=== PATIENT | male | born 1985 | race Caucasian/White ===

== ENCOUNTER 2020-03-09 08:04 | Outpatient (REF) | payer OTHER, SELFPAY ==
--- NOTE | 2020-03-09 08:11 | EMG_ITS ---
Bilateral median and ulnar motor and sensory studies were performed. Bilateral radial sensory studies were performed and paraspinal muscles were tested. IMPRESSION: Mild bilateral median neuropathy across carpal tunnel affecting sensory and motor components. MD JH Galeas/CHIKIS / [id number]
[2020-03-09 09:50] LABS: MANUAL DIFF FLAG NO
[2020-03-09 10:15] LABS: Basophils Percent Auto 0.4 % (0-2); Eosinophils Absolute Auto 0.1 X10*3/uL (0.0-0.4); Eosinophils Percent Auto 1.4 % (0-4); Hematocrit 48.4 % (42-52); Hemoglobin 16.1 g/dl (14.0-18.0); Imm Gran Abs Auto 0.01 X10*3/uL (0.00-0.03); Imm Gran Pct Auto 0.2 % (0.0-0.4); Lymphocytes Absolute Auto 1.6 X10*3/uL (1.2-4.9); Lymphocytes Percent Auto 30.5 % (20-40); Mean Corpuscular HGB Conc 33.3 g/dl (31.0-36.0); Mean Corpuscular Hemoglobin 28.8 pg (27.0-33.0); Mean Corpuscular Volume 86.6 fL (80-98); Monocytes Absolute Auto 0.5 X10*3/uL (0.1-1.2); Monocytes Percent Auto 10.4 % (2-11); Neutrophils Absolute Auto 2.9 X10*3/uL (2.0-8.3); Neutrophils Percent Auto 57.1 % (45-73); Platelet Count 320 X10*3/uL (160-400); Red Blood Count 5.59 X10*6/uL (4.60-5.80); Red Cell Distribution Width 13.3 % (11.0-16.0); White Blood Count 5.1 X10*3/uL (4.8-10.8)
[2020-03-09 10:41] LABS: Alanine Aminotransferase 44 U/L (0-40); Albumin Level 4.6 g/dL (3.5-5.0); Alkaline Phosphatase 68 U/L (39-117); Anion Gap 13 (12-20); Aspartate Amino Transferase 39 U/L (5-37); Bilirubin Total 0.7 mg/dL (0.0-1.0); Blood Urea Nitrogen 15 mg/dL (9-16); Carbon Dioxide 27 mmol/L (22-29); Chloride 105 mmol/L (96-108); Cholesterol 213 mg/dL; Estimated Glomerular Filt Rate > 60; Glucose Random 79 mg/dL (60-115); HDL Cholesterol 30 mg/dL; LDL Cholesterol Calculated 166 mg/dl; Potassium 4.6 mmol/l (3.3-5.1); Sodium 140 mmol/L (135-145); Total Protein 7.5 g/dL (6.5-8.0); Triglycerides 87 mg/dL
== END 2020-03-09 08:05 | disposition home or self-care (01) ==
LOC: HO.NEURO 08:04
PROVIDERS: PCP Internal Medicine; Visit Provider Internal Medicine
DX: R20.0 Anesthesia of skin (principal); E78.00 Pure hypercholesterolemia, unspecified
CPT/HCPCS: 36415; 80053; 80061; 85025; 95860; 95886; 95911

== ENCOUNTER 2020-03-29 10:11 | Outpatient (REF) | payer OTHER, SELFPAY ==
[2020-03-29 10:44] LABS: COVID-19 Test Negative (Negative)
== END 2020-03-29 10:12 | disposition home or self-care (01) ==
LOC: HO.LAB 10:11
PROVIDERS: PCP Internal Medicine; Visit Provider Internal Medicine
DX: Z20.828 Contact with and (suspected) exposure to other viral communicable diseases (principal)
CPT/HCPCS: 87635; C9803

== ENCOUNTER 2020-04-20 11:46 | Outpatient (REF) | payer OTHER, SELFPAY ==
[2020-04-20 15:50] LABS: COVID-19 Test Negative (Negative)
== END 2020-04-20 11:47 | disposition home or self-care (01) ==
LOC: HO.LAB 11:46
PROVIDERS: Visit Provider Internal Medicine
DX: Z20.828 Contact with and (suspected) exposure to other viral communicable diseases (principal)
CPT/HCPCS: 87635; C9803; U0003

== ENCOUNTER 2020-11-03 14:37 | Outpatient (REF) | payer OTHER, SELFPAY ==
--- NOTE | ~2020-11-03 | US_ITS ---
EXAMINATION: TARGETED LEFT BREAST ULTRASOUND CLINICAL INFORMATION: Left breast lump COMPARISON: Mammography of same day TECHNIQUE: Targeted ultrasound evaluation to retroareolar region left breast FINDINGS: Ultrasound evaluation did not demonstrate any suspicious mass, edematous change, or suspicious sound shadowing. There is small amount of retroareolar parenchyma present consistent with gynecomastia. US/US breast LT complete IMPRESSION: Left gynecomastia. No suspicious left breast ultrasound findings. BI-RADS 2, benign
--- NOTE | ~2020-11-03 | MM_ITS ---
EXAMINATION: MM DIAGNOSTIC DIGITAL BREAST TOMOSYNTHESIS, BILATERAL Targeted left breast ultrasound CLINICAL INFORMATION: Left breast lump COMPARISON: Mammography: None TECHNIQUE: Digital breast tomosynthesis is performed in both the craniocaudal and mediolateral oblique views along with computer-aided detection (CAD). Synthesized 2D images are generated from the tomosynthesis. Targeted left breast ultrasound. FINDINGS: The breasts are almost entirely fatty (ACR BI-RADS breast composition Category a). There are no suspicious significant masses, abnormal calcifications, or other abnormalities. There is a small amount of asymmetric breast parenchyma retroareolar region of the left breast. Targeted left breast ultrasound demonstrates the retroareolar region a small amount of breast tissue consistent with gynecomastia. No suspicious cystic or solid mass identified. Results are discussed with the patient at time of visit. MM/MM tomosynthesis diagnostic BI IMPRESSION: No specific mammographic or ultrasound findings to suggest malignancy. Asymmetric gynecomastia. ASSESSMENT: BI-RADS 2: Benign RECOMMENDATION: Clinical follow-up
== END 2020-11-03 14:38 | disposition home or self-care (01) ==
LOC: HO.MAMMO 14:37
PROVIDERS: Visit Provider Internal Medicine
DX: N63.20 Unspecified lump in the left breast, unspecified quadrant (principal)
CPT/HCPCS: 76641; 77062; 77066

== ENCOUNTER 2021-06-13 08:28 | Outpatient (REF) | payer OTHER, SELFPAY ==
--- NOTE | ~2021-06-13 | FL_ITS ---
EXAMINATION: FL AIR-CONTRAST UPPER GI EXAMINATION AND ESOPHAGRAM CLINICAL INFORMATION: Dysphagia. COMPARISON: None. TECHNIQUE: Air-contrast upper GI examination. FINDINGS: There is normal apposition of the vocal cords while saying E . There is normal elevation of the soft palate while saying candy . Patient swallowed thin and thick barium without difficulty. No nasopharyngeal reflux or tracheal aspiration was present. No cricopharyngeal hypertrophy or Zenker's diverticulum is seen. Patient swallowed a half-inch diameter barium tablet without difficulty. There is normal distensibility of the esophagus without evidence of persistent stricture or mucosal abnormality. No hiatal hernia. No gastroesophageal reflux was elicited during the study including with water siphon test. The stomach demonstrates normal distensibility without abnormal mass or ulceration. There was no delay in gastric emptying. The duodenal bulb and sweep appeared unremarkable. FL/FL upper GI w air w Ba Swallow IMPRESSION: Normal esophagram and upper GI examination.
== END 2021-06-13 08:29 | disposition home or self-care (01) ==
LOC: HO.XRAY 08:28
PROVIDERS: PCP Internal Medicine; Visit Provider Internal Medicine
DX: R13.10 Dysphagia, unspecified (principal)
CPT/HCPCS: 74246

== ENCOUNTER 2021-07-19 08:52 | Outpatient (REF) | payer OTHER, SELFPAY ==
[2021-07-19 09:07] LABS: MANUAL DIFF FLAG NO
[2021-07-19 10:03] LABS: Basophils Percent Auto 0.4 % (0-2); Eosinophils Absolute Auto 0.2 X10*3/uL (0.0-0.4); Eosinophils Percent Auto 5.1 % (0-4); Hemoglobin 16.2 g/dl (14.0-18.0); Imm Gran Abs Auto 0.03 X10*3/uL (0.00-0.03); Imm Gran Pct Auto 0.6 % (0.0-0.4); Lymphocytes Absolute Auto 1.3 X10*3/uL (1.2-4.9); Lymphocytes Percent Auto 27.7 % (20-40); Mean Corpuscular HGB Conc 33.8 g/dl (31.0-36.0); Mean Corpuscular Volume 88.9 fL (80.0-98.0); Mean Platelet Volume 10.8 fL (9.4-12.4); Monocytes Absolute Auto 0.6 X10*3/uL (0.1-1.2); Monocytes Percent Auto 13.5 % (2-11); Neutrophils Absolute Auto 2.5 x10*3/uL (2.0-8.3); Neutrophils Percent Auto 52.7 % (45-73); Platelet Count 313 X10*3/uL (160-400); Red Cell Distribution Width 13.1 % (11.0-16.0); White Blood Count 4.7 X10*3/uL (4.8-10.8)
[2021-07-19 10:54] LABS: Alanine Aminotransferase 55 U/L (0-40); Albumin Level 4.6 g/dL (3.5-5.0); Alkaline Phosphatase 62 U/L (39-117); Anion Gap 14 (12-20); Aspartate Amino Transferase 27 U/L (5-37); Bilirubin Total 0.5 mg/dL (0.0-1.0); Blood Urea Nitrogen 14 mg/dL (9-16); Calcium 10.1 mg/dL (8.4-10.2); Carbon Dioxide 25 mmol/L (22-29); Chloride 105 mmol/L (96-108); Cholesterol 229 mg/dL; Estimated Glomerular Filt Rate > 60; Glucose Fasting 95 mg/dL (60-99); HDL Cholesterol 31 mg/dL; LDL Cholesterol Calculated 162 mg/dl; Potassium 4.5 mmol/L (3.3-5.1); Sodium 139 mmol/L (135-145); Total Protein 7.8 g/dL (6.5-8.0); Triglycerides 183 mg/dL
[2021-07-19 11:01] LABS: TSH reflex Free T4 1.32 uIU/mL (0.32-4.0)
[2021-07-19 11:11] LABS: Folate 10.3 ng/mL (> or = 4.0); Vitamin B12 429 pg/mL (200-900)
[2021-07-24 15:22] LABS: Vitamin D 25-OH, D2 <4 ng/mL; Vitamin D 25-OH, D3 12 ng/mL; Vitamin D 25-OH, Total 12 ng/mL (30-100)
== END 2021-07-19 08:53 | disposition home or self-care (01) ==
LOC: HO.LAB 08:52
PROVIDERS: Nurse Practitioner Acute Care; PCP Internal Medicine; Visit Provider Internal Medicine
DX: E78.00 Pure hypercholesterolemia, unspecified (principal); F41.0 Panic disorder [episodic paroxysmal anxiety]
CPT/HCPCS: 36415; 80053; 80061; 82306; 82607; 82746; 84443; 85025

== ENCOUNTER 2021-11-29 09:28 | Outpatient (REF) | payer OTHER, SELFPAY ==
[2021-11-29 10:56] LABS: HBS Num1 686.06 mIU/mL (0-7.99); HBc Num1 0.11 S/CO (0.00-0.79); HBsAGNum1 0.19 S/CO (0.00-0.99); HIV AB/AG Nonreactive (Nonreactive); HIV Num 1 0.07 S/CO (0.00-0.99); Hepatitis B Core Antibody Nonreactive (Nonreactive); Hepatitis B Surface Antigen Negative (Negative); ~HepC Num1 0.06 S/CO (0.00-0.79); ~Hepatitis B Surface Antibody REACTIVE (Nonreactive); ~Hepatitis C Antibody Nonreactive (Nonreactive)
[2021-12-05 20:03] LABS: Treponema pallidum Ab FTA ABS Nonreactive (Nonreactive)
== END 2021-11-29 09:29 | disposition home or self-care (01) ==
LOC: HO.LAB 09:28
PROVIDERS: PCP Internal Medicine; Visit Provider Internal Medicine
DX: Z11.4 Encounter for screening for human immunodeficiency virus [HIV] (principal); R79.89 Other specified abnormal findings of blood chemistry; Z20.2 Contact with and (suspected) exposure to infections with a predominantly sexual mode of transmission
CPT/HCPCS: 36415; 86704; 86706; 86780; 86803; 87340; 87389

== ENCOUNTER 2023-01-28 13:25 | Outpatient (AMB) | payer OTHER, SELFPAY ==
[2023-01-28 13:29] VITALS: BP 130/80; PULSE 79; O2SAT 100; BMI 31.5
--- NOTE | 2023-01-28 13:29 | MHC.PC.OV ---
Vital Signs 01/28/23 13:29 Height 5 ft 11 in Weight 226 lb BMI 31.5 BP 130/80 Blood Pressure Location Lt brachial Position Sitting Pulse 79 Pulse Source Pulse Oximeter Temp Source Skin Pulse Oximetry (%) 100 Oxygen Delivery Method Room Air Intake Visit Reasons: skin tags, spot on face Community Organization Worker Required: No Allergies No Known Allergies Allergy (Verified 01/28/23 13:29) Tobacco use date assessed: 01/28/23 Dental Screening Dental Screen Date: 01/28/23 Did you have a dental visit in the last 12 months?: Yes Did you have a dental problem in the last 6 months where you did not have access to dental care?: No Was dental information given to patient?: Patient has dentist HPI HPI Comments History of Present Illness Details 37-year-old male past medical history significant for panic attacks, generalized anxiety disorder, ADHD, hypercholesteremia, obesity, mild carpal tunnel and hyperhidrosis. Patient last seen in March 2022. Patient presents today for skin tags on neck and white discoloration on face since october. Denies that hypopigmented spot on face is itchy or painful. Patient reports he tried hydrocortisone x1 dose and then he stopped using it. [facility] Medical History Hypercholesterolemia Lump of left breast Obesity (BMI 30-39.9) Recurrent major depression Retinal detachment Vitamin D deficiency Surgical History H/O hernia repair H/O vitrectomy History of ankle surgery History of appendectomy History of cataract surgery History of lumbar fusion History of tonsillectomy Family History Father Alive and well Mother Lung cancer Diabetes Hypertension Sister Colon cancer, Onset Age: 48 Social History Housing: House Alcohol intake: current Alcohol intake frequency: holidays/special occasions only Patient Tobacco Use Status: Former Tobacco user Tobacco use type: Cigarette e-Cigarette/Vaping Use: Never Used Second Hand Smoke Exposure: No service: No Current occupational status: employed Current occupation: [employer] Cognitive needs: No Hearing needs: No Vision needs: Yes (reading glasses) Questionnaire Thrive Questionnaire Date Thrive assessed: 11/20/21 AUDIT C Alcohol Use Questionnaire (AUDIT-C) 1. How often do you have a drink containing alcohol?: Monthly or less 2. How many drinks containing alcohol do you have on a typical day when you are drinking?: 1 or 2 3. How often do you have six or more drinks on one occasion?: Never Total Score: 1 Score Reviewed/Action Taken: Yes MAXIMO-7 AMB Questionnaire MAXIMO-7 Date MAXIMO - 7 assessed: 11/20/21 Source: Developed by Drs. Robert Rodrigues, Carmina Jara, Silas Marion and colleagues, with an educational arun from [employer]. Review of Systems Const Denies chills, Denies fatigue, Denies fever(s) and Denies poor appetite Eyes Denies no additional complaints ENT Reports Normal hearing present Card Denies chest pain, Denies syncope, Denies rapid heart rate and Denies dyspnea Resp Denies cough and Denies dyspnea GI Denies change in stool character, Denies constipation, Denies diarrhea, Denies nausea and Denies vomiting Denies dysuria, Denies urinary frequency and Denies urinary urgency Skin/Breast Details: Patient reports white spot to right side of lip as well as scattered skin tags on neck and 1 on left hip Neuro Reports Normal hearing present, Denies confusion and Denies syncope Psych Denies confusion Endo Denies fatigue Physical exam (Primary Care) Vital Signs: Last Vital Signs Pulse 79 01/28/23 13:29 BP 130/80 01/28/23 13:29 Pulse Ox 100 01/28/23 13:29 Oxygen Delivery Method Room Air 01/28/23 13:29 BMI result Body Mass Index 31.5 Tobacco/Smoking Status: Tobacco use Status Tobacco use date assessed 01/28/23 01/28/23 13:30 Patient Tobacco Use Status Former Tobacco user 01/28/23 13:30 Tobacco use type Cigarette 01/28/23 13:30 e-Cigarette/Vaping Use Never Used 01/28/23 13:30 Thrive Assessment: Date of Thrive Assessment Date Thrive assessed 11/20/21 01/28/23 13:30 Const General: No confusion Orientation/consciousness: No confusion HENMT Head: Yes normocephalic and Yes atraumatic Eyes Conjunctivae: conjunctivae normal Chest Chest palpation & inspection: normal inspection of the chest Resp Effort & Inspection: normal respiratory effort Auscultation: clear to auscultation bilaterally, no crackles, no rhonchi and no wheezes Cardio Rate: regular rate Rhythm: regular rhythm Heart sounds: S1 normal heart sound present and S2 normal heart sound present Peripheral pulses: dorsalis pedis present GI Inspection: Yes normal to inspection General: Yes no CVA tenderness Back/Spine/Pelvis Back: no CVA tenderness Skin Other: scattered skin color nevi noted to posterior neck with one smaller than pea size skin tage noted to left anterior hip. Rashes: other (hypopigmented annular, flat spot ) Neuro General: No confusion Cranial nerves: Yes Normal hearing present Extrem General: No edema Assessment and Plan Assessment & Plan (1) Seasonal allergies: Code(s): J30.2 - Other seasonal allergic rhinitis Plan: Loratadine 10 mg daily sent to patient's pharmacy. (2) Hypopigmentation: Code(s): L81.9 - Disorder of pigmentation, unspecified Plan: Patient advised to apply 1% hydrocortisone cream b.i.d. times 14 days to hypopigmented spot on face. Referral entered to dermatology (3) Skin tag: Code(s): L91.8 - Other hypertrophic disorders of the skin Plan: Referral entered to dermatology as patient requesting skin tags be evaluated for possible removal. Orders: Referrals Dermatology Referral L81.9 - Disorder of pigmentation, unspecified, L91.8 - Other hypertrophic disorders of the skin Medications: New loratadine 10 mg PO DAILY 30 tabs 0RF J30.2 - Other seasonal allergic rhinitis hydrocortisone 1% (Cortisone (hydrocortisone)) use twice a day x 2 weeks then stop 1 appl topical BID 120 mL 0RF L81.9 - Disorder of pigmentation, unspecified Coding Level of Care Code Est Pt Level 3 (91872) Diagnoses Seasonal allergies J30.2 Hypopigmentation L81.9 Skin tag L91.8
== END 2023-01-28 13:55 | disposition home or self-care (01) ==
PROVIDERS: PCP Internal Medicine; Visit Provider Nurse Practitioner Family
DX: J30.2 Other seasonal allergic rhinitis (principal); L81.9 Disorder of pigmentation, unspecified; L91.8 Other hypertrophic disorders of the skin
CPT/HCPCS: 99213

== ENCOUNTER 2023-06-23 13:22 | Outpatient (AMB) | payer OTHER, SELFPAY ==
--- NOTE | 2023-06-23 13:35 | A.OFFPC_ITS ---
Vital Signs 06/23/23 13:37 Height 5 ft 11 in Weight 214 lb 6 oz BMI 29.9 BP 100/62 Blood Pressure Location Lt brachial Position Sitting Pulse 62 Pulse Source Pulse Oximeter Pulse Oximetry (%) 98 Oxygen Delivery Method Room Air Intake Visit Reasons: Depression/anxiety Intake Note: Patient is here to follow up on Depression and Anxiety. Requesting for a letter to be out of work due to his depression and anxiety. Has be out of work since 05/2023. 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 Assembler Movement: Not Required per policy Accompanied by: Self / Same As Patient Allergies No Known Allergies Allergy (Verified 06/23/23 13:36) Medication List - Last Reconciled 06/23/23 by Carlos Rodríguez MD dextroamphetamine-amphetamine 20 mg ER (Adderall XR) 20 mg PO DAILY 30 days escitalopram oxalate (Lexapro) 5 mg PO DAILY mirtazapine 15 mg PO BEDTIME 30 days Tobacco use date assessed: 06/23/23 Dental Screening Dental Screen Date: 06/23/23 Did you have a dental visit in the last 12 months?: No Did you have a dental problem in the last 6 months where you did not have access to dental care?: No Was dental information given to patient?: Patient has dentist HPI Depression/anxiety HPI Details 37-year-old obese male with a history of hypercholesterolemia, generalized anxiety disorder last seen in January 2023. Patient is here for follow-up . Noted weight loss. feeling stressed druring the holiday - Worked on 2 days last month. has been set up for EAP- will need to schedule. needing a letter for work. asking for work off [employer] starting and for a couple of months just to sort things out with his anxiety problem. [facility] Medical History Hypercholesterolemia Lump of left breast Obesity (BMI 30-39.9) Recurrent major depression Retinal detachment Vitamin D deficiency Surgical History History of cataract surgery H/O vitrectomy History of appendectomy H/O hernia repair History of ankle surgery History of lumbar fusion History of tonsillectomy Family History Father Alive and well Mother Lung cancer Diabetes Hypertension Sister Colon cancer, Onset Age: 48 Social History Housing: House Alcohol intake: current Alcohol intake frequency: holidays/special occasions only Patient Tobacco Use Status: Former Tobacco user Tobacco use type: Cigarette e-Cigarette/Vaping Use: Never Used Second Hand Smoke Exposure: No service: No Current occupational status: employed Current occupation: [employer] Cognitive needs: No Hearing needs: No Vision needs: Yes (reading glasses) Questionnaire PHQ-9 Over the last 2 weeks, how often have you been bothered by any of the following problems? 1. Little interest or pleasure in doing things: several days 2. Feeling down, depressed, or hopeless: nearly every day 3. Trouble falling or staying asleep, or sleeping too much: more than half the days 4. Feeling tired or having little energy: more than half the days 5. Poor appetite or overeating: more than half the days 6. Feeling bad about yourself - or that you are a failure or have let yourself or your family down: more than half the days 7. Trouble concentrating on things, such as reading the newspaper or watching television: more than half the days 8. Moving or speaking so slowly that other people could have noticed. Or the opposite - being so fidgety or restless that you have been moving around a lot more than usual: several days 9. Thoughts that you would be better off or of hurting yourself in some way: not at all Total score: 15 Depression Screening Interpretation: Positive Depression Screening Done: Yes Source: Developed by Drs. Robert Rodrigues, Carmina Jara, Silas Marion and colleagues, with an educational arun from [employer]. Thrive Questionnaire Date Thrive assessed: 06/23/23 I am a: Patient What is your living situation today?: I have a steady place to live Within the past 12 months, did the food you bought not last and you didn't have the money to get more?: Never true Within the past 12 months, did you worry whether your food would run out before you got money to buy more?: Never true Do you have trouble paying for medicines?: No Do you have trouble getting transportation to medical appointments?: No Do you have trouble paying your heating and electricity bill?: No Do you have trouble taking care of your child, family member or friend?: No Do you have trouble with day-to-day activities such as bathing, preparing meals, shopping, managing finances, etc.?: No Are you currently unemployed and looking for a job?: No Are you interested in more education?: No Currently or been in a relationship where the following occur: no concerns reported THRIVE Score: 0 AUDIT C Alcohol Use Questionnaire (AUDIT-C) 1. How often do you have a drink containing alcohol?: Monthly or less 2. How many drinks containing alcohol do you have on a typical day when you are drinking?: 1 or 2 Total Score: 1 MAXIMO-7 AMB Questionnaire MAXIMO-7 Date MAXIMO - 7 assessed: 06/23/23 Feeling nervous, anxious, or on edge: 1 = Several days Not being able to stop or control worryin = Nearly every day Worrying too much about different things: 3 = Nearly every day Trouble relaxin = Nearly every day Being so restless that it is hard to sit still: 1 = Several days Becoming easily annoyed or irritable: 1 = Several days Feeling afraid as if something awful might happen: 2 = More than half the days Total MAXIMO-7 score (0-4 normal; 5-9 mild; 10-14 moderate; 15-21 severe): 14 Source: Developed by Drs. Robert Rodrigues, Carmina Jara, Silas Marion and colleagues, with an educational arun from [employer]. Physical exam (Primary Care) Vital Signs: Last Vital Signs Pulse 62 06/23/23 13:37 BP 100/62 06/23/23 13:37 Pulse Ox 98 06/23/23 13:37 Oxygen Delivery Method Room Air 06/23/23 13:37 BMI result Body Mass Index 29.9 Tobacco/Smoking Status: Tobacco use Status Tobacco use date assessed 06/23/23 06/23/23 13:47 Patient Tobacco Use Status Former Tobacco user 06/23/23 13:47 Tobacco use type Cigarette 06/23/23 13:47 e-Cigarette/Vaping Use Never Used 06/23/23 13:47 PHQ-9: PHQ-9 Score PHQ-9: Total score 15 06/23/23 13:47 Depression Screening Interpretation: Positive Thrive Assessment: Date of Thrive Assessment Date Thrive assessed 06/23/23 06/23/23 13:47 Currently or been in a relationship where the following occur: no concerns reported Const General: alert; No acute distress Eyes Conjunctivae: conjunctivae normal Resp Auscultation: clear to auscultation bilaterally Cardio Rate: regular rate Rhythm: regular rhythm GI Inspection: Yes normal to inspection Extrem General: Yes normal to inspection and No edema Assessment and Plan Assessment & Plan (1) ADHD: Comment: September 2017 [facility] Code(s): F90.9 - Attention-deficit hyperactivity disorder, unspecified type Qualifiers: Attention deficit-hyperactivity disorder type: predominantly inattentive Qualified Code(s): F90.0 - Attention-deficit hyperactivity disorder, predominantly inattentive type Plan: Continue with present medication (2) Generalized anxiety disorder: Comment: decline referral for counselling Code(s): F41.1 - Generalized anxiety disorder Plan: PAtient is asking for a work couselling- EAP meanwhile was start medication for anxiety. (3) Overweight (BMI 25.0-29.9): Code(s): E66.3 - Overweight Plan: Continue with diet and exercise Medications: New escitalopram oxalate (Lexapro) 5 mg PO DAILY 30 tabs 2RF F41.1 - Generalized anxiety disorder Refilled dextroamphetamine-amphetamine 20 mg ER (Adderall XR) covering for Dr. Po 20 mg PO DAILY 30 days 30 caps 0RF F90.2 - Attention- deficit hyperactivity disorder, combined type Coding Level of Care Code Est Pt Level 4 (27361) Diagnoses Attention deficit hyperactivity disorder (ADHD), predominantly inattentive type F90.0 Attention deficit-hyperactivity disorder type: predominantly inattentive Generalized anxiety disorder F41.1 Overweight (BMI 25.0-29.9) E66.3
[2023-06-23 13:37] VITALS: BP 100/62; PULSE 62; O2SAT 98; BMI 29.9
== END 2023-06-23 14:03 | disposition home or self-care (01) ==
PROVIDERS: PCP Internal Medicine; Visit Provider Internal Medicine
DX: F90.0 Attention-deficit hyperactivity disorder, predominantly inattentive type (principal); F41.1 Generalized anxiety disorder; E66.3 Overweight
CPT/HCPCS: 99214

== ENCOUNTER 2023-08-14 15:59 | Outpatient (AMB) | payer OTHER, SELFPAY ==
[2023-08-14 16:02] VITALS: BP 156/90; PULSE 110; O2SAT 97
--- NOTE | 2023-08-14 16:02 | A.OFFPC_ITS ---
Vital Signs 08/14/23 16:02 Height 5 ft 11 in Weight 215 lb 0.1 oz BMI 30.0 BP 156/90 H Blood Pressure Location Lt brachial Position Sitting Pulse 110 H Pulse Source Pulse Oximeter Pulse Oximetry (%) 97 Oxygen Delivery Method Room Air Intake Visit Reasons: MAXIMO [employer] Blower Required: No Allergies No Known Allergies Allergy (Verified 08/14/23 16:03) Tobacco use date assessed: 08/14/23 Dental Screening Dental Screen Date: 06/23/23 HPI MAXIMO HPI Details 37-year-old overweight male with a histo ry of ADHD and generalized anxiety disorder coming in for follow-up. Last seen in June 2023. stopped work 06/23/2023 patient is still in a lot of stress and is asking for further excuse from work. Reviewed the chart of the patient and discussed about the problems patient's last blood work was done in 2021 and noted to have an elevated liver function test as well as cholesterol and discussed with the patient the risk of leaving high cholesterol there and so advised to have this repeated. Meanwhile advised to eat healthy. Also with family history of colon cancer referral to Gastroenterology was done a few years back patient has not gone to that referral and stressed with the patient that he needs to see the gastroenterology for colon cancer prevention. [facility] Medical History Hypercholesterolemia Lump of left breast Obesity (BMI 30-39.9) Recurrent major depression Retinal detachment Vitamin D deficiency Surgical History History of cataract surgery H/O vitrectomy History of appendectomy H/O hernia repair History of ankle surgery History of lumbar fusion History of tonsillectomy Family History Father Alive and well Mother Lung cancer Diabetes Hypertension Sister Colon cancer, Onset Age: 48 Social History Housing: House Alcohol intake: current Alcohol intake frequency: holidays/special occasions only Patient Tobacco Use Status: Former Tobacco user Tobacco use type: Cigarette e-Cigarette/Vaping Use: Never Used Second Hand Smoke Exposure: No service: No Current occupational status: employed Current occupation: [employer] Cognitive needs: No Hearing needs: No Vision needs: Yes (reading glasses) Questionnaire Thrive Questionnaire Date Thrive assessed: 06/23/23 AUDIT C Alcohol Use Questionnaire (AUDIT-C) 1. How often do you have a drink containing alcohol?: Monthly or less 2. How many drinks containing alcohol do you have on a typical day when you are drinking?: 1 or 2 Total Score: 1 MAXIMO-7 AMB Questionnaire MAXIMO-7 Date MAXIMO - 7 assessed: 06/23/23 Feeling nervous, anxious, or on edge: 1 = Several days Not being able to stop or control worryin = Nearly every day Worrying too much about different things: 3 = Nearly every day Trouble relaxin = Nearly every day Being so restless that it is hard to sit still: 1 = Several days Becoming easily annoyed or irritable: 1 = Several days Feeling afraid as if something awful might happen: 2 = More than half the days Total MAXIMO-7 score (0-4 normal; 5-9 mild; 10-14 moderate; 15-21 severe): 14 Source: Developed by Drs. Robert Rodrigues, Carmina Jara, Silas Marion and colleagues, with an educational arun from [employer]. Physical exam (Primary Care) Vital Signs: Oxygen Delivery Method Room Air 08/14/23 16:02 Tobacco/Smoking Status: Tobacco use Status Tobacco use date assessed 08/14/23 08/14/23 16:03 Patient Tobacco Use Status Former Tobacco user 08/14/23 16:03 Tobacco use type Cigarette 08/14/23 16:03 e-Cigarette/Vaping Use Never Used 08/14/23 16:03 Thrive Assessment: Date of Thrive Assessment Date Thrive assessed 06/23/23 08/14/23 16:03 Const General: alert; No acute distress Eyes Conjunctivae: conjunctivae normal Resp Auscultation: clear to auscultation bilaterally Cardio Rate: regular rate Rhythm: regular rhythm GI Inspection: Yes normal to inspection Extrem General: Yes normal to inspection and No edema Assessment and Plan Assessment & Plan (1) Overweight (BMI 25.0-29.9): Code(s): E66.3 - Overweight Plan: Diet and exercise (2) LFT elevation: Code(s): R79.89 - Other specified abnormal findings of blood chemistry Plan: Continuing to monitor, eat healthy (3) Family history of colon cancer: Comment: sister 47 year old Code(s): Z80.0 - Family history of malignant neoplasm of digestive organs Plan: Discussed with the patient regarding family history showing colon cancer history. Will do a referral. Stressed importance of this referral. (4) ADHD: Comment: September 2017 [facility] Code(s): F90.9 - Attention-deficit hyperactivity disorder, unspecified type Qualifiers: Attention deficit-hyperactivity disorder type: predominantly inattentive Qualified Code(s): F90.0 - Attention-deficit hyperactivity disorder, predominantly inattentive type Plan: Continue with present medication (5) Generalized anxiety disorder: Comment: decline referral for counselling Code(s): F41.1 - Generalized anxiety disorder Plan: Continue with present medication. Patient continues to be not ready for work and was asking for extension for couple more months. (6) Hypercholesterolemia: Code(s): E78.00 - Pure hypercholesterolemia, unspecified Plan: Avoid fried foods, chicken skin, eggs, butter margarine, pastries and meat. Be it pork or beef they have a lot of cholesterol LDL goal of less than 130 and triglyceride of less than 150 Orders: Orders Free T4 (Free Thyroxine) Today E78.00 - Pure hypercholesterolemia, unspecified Thyroid Stimulating Hormone Today E78.00 - Pure hypercholesterolemia, unspecified Complete Blood Count Auto Diff Today E78.00 - Pure hypercholesterolemia, unspecified Comprehensive Met. Panel Today E78.00 - Pure hypercholesterolemia, unspecified Lipid Panel Today E78.00 - Pure hypercholesterolemia, unspecified Vitamin B12 and Folate Today E78.00 - Pure hypercholesterolemia, unspecified Referrals Gastroenterology Referral Z80.0 - Family history of malignant neoplasm of digestive organs Coding Level of Care Code Est Pt Level 4 (81611) Diagnoses Overweight (BMI 25.0-29.9) E66.3 LFT elevation R79.89 Family history of colon cancer Z80.0 Attention deficit hyperactivity disorder (ADHD), predominantly inattentive type F90.0 Attention deficit-hyperactivity disorder type: predominantly inattentive Generalized anxiety disorder F41.1 Hypercholesterolemia E78.00
== END 2023-08-14 16:27 | disposition home or self-care (01) ==
PROVIDERS: PCP Internal Medicine; Visit Provider Internal Medicine
DX: E66.3 Overweight (principal); R79.89 Other specified abnormal findings of blood chemistry; Z80.0 Family history of malignant neoplasm of digestive organs; F90.0 Attention-deficit hyperactivity disorder, predominantly inattentive type; F41.1 Generalized anxiety disorder; E78.00 Pure hypercholesterolemia, unspecified
CPT/HCPCS: 99214

== ENCOUNTER 2023-09-09 13:29 | Outpatient (REF) | payer OTHER, SELFPAY ==
[2023-09-09 15:43] LABS: Basophils Percent Auto 0.6 % (0-2); Eosinophils Absolute Auto 0.3 X10*3/uL (0.0-0.4); Eosinophils Percent Auto 5.7 % (0-4); Hematocrit 45.5 % (42.0-52.0); Hemoglobin 15.7 g/dl (14.0-18.0); Imm Gran Abs Auto 0.02 X10*3/uL (0.00-0.03); Imm Gran Pct Auto 0.4 % (0.0-0.4); Lymphocytes Absolute Auto 1.8 X10*3/uL (1.2-4.9); Lymphocytes Percent Auto 34.5 % (20-40); MANUAL DIFF FLAG NO; Mean Corpuscular HGB Conc 34.5 g/dl (31.0-36.0); Mean Corpuscular Hemoglobin 30.1 pg (27.0-33.0); Mean Corpuscular Volume 87.3 fL (80.0-98.0); Mean Platelet Volume 10.7 fL (9.4-12.4); Monocytes Absolute Auto 0.4 X10*3/uL (0.1-1.2); Monocytes Percent Auto 8.6 % (2-11); Neutrophils Absolute Auto 2.6 x10*3/uL (2.0-8.3); Neutrophils Percent Auto 50.2 % (45-73); Platelet Count 272 X10*3/uL (160-400); Red Blood Count 5.21 X10*6/uL (4.60-5.80); Red Cell Distribution Width 11.6 % (11.0-16.0); White Blood Count 5.1 X10*3/uL (4.8-10.8)
[2023-09-09 16:44] LABS: Alanine Aminotransferase 92 U/L (0-40); Albumin Level 4.2 g/dL (3.5-5.0); Alkaline Phosphatase 81 U/L (39-117); Anion Gap 14 (12-20); Aspartate Amino Transferase 36 U/L (5-37); Bilirubin Total 0.4 mg/dL (0.0-1.0); Blood Urea Nitrogen 7 mg/dL (9-16); Calcium 9.6 mg/dL (8.4-10.2); Carbon Dioxide 27 mmol/L (22-29); Chloride 104 mmol/L (96-108); Cholesterol 263 mg/dL (<200); Estimated Glomerular Filt Rate > 60; Glucose Random 87 mg/dL (60-115); HDL Cholesterol 45 mg/dL (>40); LDL Cholesterol Calculated 159 mg/dL (<100); Potassium 3.8 mmol/L (3.3-5.1); Sodium 141 mmol/L (135-145); Total Protein 7.5 g/dL (6.5-8.0); Triglycerides 297 mg/dL (<150)
[2023-09-09 16:59] LABS: Free T4 (Free Thyroxine) 0.69 ng/dL (0.71-1.85); Thyroid Stimulating Hormone 1.17 uIU/mL (0.32-4.0)
[2023-09-09 20:26] LABS: Folate 6.6 ng/mL (> or = 4.0); Vitamin B12 628 pg/mL (200-900)
[2023-09-10 03:38] LABS: Syphilis Screen Nonreactive (Nonreactive)
[2023-09-10 04:12] LABS: HBc Num1 0.07 S/CO (0.00-0.79); HBsAGNum1 0.19 S/CO (0.00-0.99); HIV AB/AG Nonreactive (Nonreactive); HIV Num 1 0.05 S/CO (0.00-0.99); Hepatitis B Core Antibody Nonreactive (Nonreactive); Hepatitis B Surface Antigen Negative (Negative); ~Hepatitis B Surface Antibody REACTIVE (Nonreactive); ~Hepatitis C Antibody Nonreactive (Nonreactive)
== END 2023-09-09 13:30 | disposition home or self-care (01) ==
LOC: HO.LAB 13:29
PROVIDERS: PCP Internal Medicine; Visit Provider Internal Medicine
DX: Z11.4 Encounter for screening for human immunodeficiency virus [HIV] (principal); E78.00 Pure hypercholesterolemia, unspecified; R79.89 Other specified abnormal findings of blood chemistry; Z20.2 Contact with and (suspected) exposure to infections with a predominantly sexual mode of transmission
CPT/HCPCS: 36415; 80053; 80061; 82607; 82746; 84439; 84443; 85025; 86704; 86706; 86780; 86803; 87340; 87389

== ENCOUNTER 2023-11-11 13:22 | Outpatient (AMB) | payer BC, SELFPAY ==
--- NOTE | 2023-11-11 13:25 | A.OFFPC_ITS ---
Vital Signs 11/11/23 13:26 Height 5 ft 11 in Weight 232 lb BMI 32.4 BP 104/68 Blood Pressure Location Lt brachial Position Sitting Pulse 62 Pulse Source Pulse Oximeter Pulse Oximetry (%) 98 Oxygen Delivery Method Room Air Intake Visit Reasons: MAXIMO, FH colon cancer, Hypercholesterol Allergies No Known Allergies Allergy (Verified 11/11/23 13:26) Medication List - Last Reconciled 11/11/23 by Carlos Rodríguez MD escitalopram oxalate (Lexapro) 10 mg PO DAILY hydroxyzine HCl 50 mg PO BID PRN risperidone (Risperdal) 2 mg PO BEDTIME Tobacco use date assessed: 08/14/23 Dental Screening Dental Screen Date: 06/23/23 HPI MAXIMO, FH colon cancer, Hypercholesterol HPI Details 38-year-old obese male(noted 17 lb weigh t gain) with family history of colon cancer ADHD generalized anxiety disorder and hypercholesterolemia last seen in August 2023 review of the notes has been seen by behavioral health in [facility] due to paranoia and delusions and auditory hallucinations patient does have polysubstance abuse cocaine and alcohol but this has been stopped placed involuntary inpatient psychiatry. 4 days [facility] Medical History (Updated 11/11/23 @ 13:51 by Carlos Rodríguez MD) Overweight (BMI 25.0-29.9) Recurrent major depression Vitamin D deficiency Lump of left breast Retinal detachment Obesity (BMI 30-39.9) Hypercholesterolemia Surgical History History of cataract surgery H/O vitrectomy History of appendectomy H/O hernia repair History of ankle surgery History of lumbar fusion History of tonsillectomy Family History Father Alive and well Mother Lung cancer Diabetes Hypertension Sister Colon cancer, Onset Age: 48 Social History Housing: House Alcohol intake: current Alcohol intake frequency: holidays/special occasions only Patient Tobacco Use Status: Former Tobacco user Tobacco use type: Cigarette e-Cigarette/Vaping Use: Never Used Second Hand Smoke Exposure: No service: No Current occupational status: employed Current occupation: [employer] Cognitive needs: No Hearing needs: No Vision needs: Yes (reading glasses) Questionnaire PHQ-9 Over the last 2 weeks, how often have you been bothered by any of the following problems? 1. Little interest or pleasure in doing things: not at all 2. Feeling down, depressed, or hopeless: not at all 3. Trouble falling or staying asleep, or sleeping too much: not at all 4. Feeling tired or having little energy: not at all 5. Poor appetite or overeating: not at all 6. Feeling bad about yourself - or that you are a failure or have let yourself or your family down: not at all 7. Trouble concentrating on things, such as reading the newspaper or watching television: not at all 8. Moving or speaking so slowly that other people could have noticed. Or the opposite - being so fidgety or restless that you have been moving around a lot more than usual: not at all 9. Thoughts that you would be better off or of hurting yourself in some way: not at all Total score: 0 Depression Screening Interpretation: Positive Depression Screening Done: Yes Source: Developed by Drs. Robert Rodrigues, Carmina Jara, Silas Marion and colleagues, with an educational arun from [employer]. Thrive Questionnaire Date Thrive assessed: 06/23/23 AUDIT C Alcohol Use Questionnaire (AUDIT-C) 1. How often do you have a drink containing alcohol?: Monthly or less 2. How many drinks containing alcohol do you have on a typical day when you are drinking?: 1 or 2 Total Score: 1 MAXIMO-7 AMB Questionnaire MAXIMO-7 Date MAXIMO - 7 assessed: 11/11/23 Feeling nervous, anxious, or on edge: 3 = Nearly every day Not being able to stop or control worryin = Nearly every day Worrying too much about different things: 3 = Nearly every day Trouble relaxin = Nearly every day Being so restless that it is hard to sit still: 3 = Nearly every day Becoming easily annoyed or irritable: 3 = Nearly every day Feeling afraid as if something awful might happen: 3 = Nearly every day Total MAXIMO-7 score (0-4 normal; 5-9 mild; 10-14 moderate; 15-21 severe): 21 Source: Developed by Drs. Robert Rodrigues, Silas Gandara and colleagues, with an educational arun from [employer]. Physical exam (Primary Care) Vital Signs: Last Vital Signs Pulse 62 11/11/23 13:26 BP 104/68 11/11/23 13:26 Pulse Ox 98 11/11/23 13:26 Oxygen Delivery Method Room Air 11/11/23 13:26 BMI result Body Mass Index 32.4 Tobacco/Smoking Status: Tobacco use Status Tobacco use date assessed 08/14/23 11/11/23 13:29 Patient Tobacco Use Status Former Tobacco user 11/11/23 13:29 Tobacco use type Cigarette 11/11/23 13:29 e-Cigarette/Vaping Use Never Used 11/11/23 13:29 PHQ-9: PHQ-9 Score PHQ-9: Total score 0 11/11/23 13:29 Depression Screening Interpretation: Positive Thrive Assessment: Date of Thrive Assessment Date Thrive assessed 06/23/23 11/11/23 13:29 Const General: alert; No acute distress Eyes Conjunctivae: conjunctivae normal Resp Auscultation: clear to auscultation bilaterally Cardio Rate: regular rate Rhythm: regular rhythm GI Inspection: Yes normal to inspection Extrem General: Yes normal to inspection and No edema Assessment and Plan Assessment & Plan (1) Obesity (BMI 30-39.9): Code(s): E66.9 - Obesity, unspecified Plan: Discussed about diet and exercise (2) Generalized anxiety disorder: Comment: decline referral for counselling 11/2023 [facility] Q 3 weeks Code(s): F41.1 - Generalized anxiety disorder Plan: Advised counseling and therapy (3) Hypercholesterolemia: Code(s): E78.00 - Pure hypercholesterolemia, unspecified Plan: Avoid fried foods, chicken skin, eggs, butter margarine, pastries and meat. Be it pork or beef they have a lot of cholesterol LDL goal of less than 130 and triglyceride of less than 150 (4) ADHD: Comment: September 2017 CC Code(s): F90.9 - Attention-deficit hyperactivity disorder, unspecified type Qualifiers: Attention deficit-hyperactivity disorder type: predominantly inattentive Qualified Code(s): F90.0 - Attention-deficit hyperactivity disorder, predominantly inattentive type Plan: Continue follow-up with psychiatry (5) Family history of colon cancer: Comment: sister 47 year old Code(s): Z80.0 - Family history of malignant neoplasm of digestive organs Plan: Patient is reminded about colonoscopy because of this family history. November 18, 2023 GI schedule Coding Level of Care Code Est Pt Level 4 (46982) Diagnoses Obesity (BMI 30-39.9) E66.9 Generalized anxiety disorder F41.1 Hypercholesterolemia E78.00 Attention deficit hyperactivity disorder (ADHD), predominantly inattentive type F90.0 Attention deficit-hyperactivity disorder type: predominantly inattentive Family history of colon cancer Z80.0
[2023-11-11 13:26] VITALS: BP 104/68; PULSE 62; O2SAT 98; BMI 32.4
== END 2023-11-11 14:01 | disposition home or self-care (01) ==
PROVIDERS: PCP Internal Medicine; Visit Provider Internal Medicine
DX: E78.00 Pure hypercholesterolemia, unspecified (principal); F41.1 Generalized anxiety disorder; F90.0 Attention-deficit hyperactivity disorder, predominantly inattentive type; Z80.0 Family history of malignant neoplasm of digestive organs
CPT/HCPCS: 99214

== ENCOUNTER 2023-12-23 10:33 | Outpatient (AMB) | payer BC, SELFPAY ==
[2023-12-23 10:35] VITALS: BP 110/72; PULSE 74; O2SAT 98; BMI 31.9
--- NOTE | 2023-12-23 10:35 | A.OFFPC_ITS ---
Vital Signs 12/23/23 10:35 Height 5 ft 11 in Weight 229 lb BMI 31.9 BP 110/72 Blood Pressure Location Lt brachial Position Sitting Pulse 74 Pulse Source Pulse Oximeter Pulse Oximetry (%) 98 Oxygen Delivery Method Room Air Intake Visit Reasons: Medical Leave Form Environmental Program Manager Required: No Allergies No Known Allergies Allergy (Verified 12/23/23 10:35) Medication List - Last Reconciled 12/23/23 by Yocasta Lopez PA-C escitalopram oxalate (Lexapro) 10 mg PO DAILY hydroxyzine HCl 50 mg PO BID PRN risperidone (Risperdal) 2 mg PO BEDTIME Tobacco use date assessed: 08/14/23 Dental Screening Dental Screen Date: 06/23/23 HPI Medical Leave Form HPI Details 38-year-old male with past medical histo ry of hypercholesterolemia, ADHD, generalized anxiety disorder last seen by Dr. Rodríguez coming in for acute problem. Patient states he was out of work for mental health and was seen inpatient and admitted during that time. He was also following with outpatient psychiatry through [facility] and was [facility] every 2-3 weeks for stabilization on medications. He does mentioned his mental health has improved however still having persistent negative thoughts on occasion. He has currently stable on his medication regimen and is following up on a three-month basis with [facility]. He is here today for medical leave paperwork. PENDING SALE TO [facility] Medical History (Updated 12/23/23 @ 11:09 by Yocasta Lopez PA-C) Overweight (BMI 25.0-29.9) Recurrent major depression Vitamin D deficiency Lump of left breast Retinal detachment Obesity (BMI 30-39.9) Hypercholesterolemia Surgical History History of cataract surgery H/O vitrectomy History of appendectomy H/O hernia repair History of ankle surgery History of lumbar fusion History of tonsillectomy Family History Father Alive and well Mother Lung cancer Diabetes Hypertension Sister Colon cancer, Onset Age: 48 Social History Housing: House Alcohol intake: current Alcohol intake frequency: holidays/special occasions only Patient Tobacco Use Status: Former Tobacco user Tobacco use type: Cigarette e-Cigarette/Vaping Use: Never Used Second Hand Smoke Exposure: No service: No Current occupational status: employed Current occupation: [employer] department Cognitive needs: No Hearing needs: No Vision needs: Yes (reading glasses) Questionnaire PHQ-9 Over the last 2 weeks, how often have you been bothered by any of the following problems? 1. Little interest or pleasure in doing things: not at all 2. Feeling down, depressed, or hopeless: not at all 3. Trouble falling or staying asleep, or sleeping too much: not at all 4. Feeling tired or having little energy: not at all 5. Poor appetite or overeating: not at all 6. Feeling bad about yourself - or that you are a failure or have let yourself o r your family down: not at all 7. Trouble concentrating on things, such as reading the newspaper or watching television: not at all 8. Moving or speaking so slowly that other people could have noticed. Or the opposite - being so fidgety or restless that you have been moving around a lot more than usual: not at all 9. Thoughts that you would be better off or of hurting yourself in some way: not at all Total score: 0 Depression Screening Interpretation: Positive Depression Screening Done: Yes Source: Developed by Drs. Robert Rodrigues, Carmina Jara, Silas Marion and colleagues, with an educational arun from [employer]. Thrive Questionnaire Date Thrive assessed: 06/23/23 I am a: Patient What is your living situation today?: I have a steady place to live Within the past 12 months, did the food you bought not last and you didn't have the money to get more?: Never true Within the past 12 months, did you worry whether your food would run out before you got money to buy more?: Never true Do you have trouble paying for medicines?: No Do you have trouble getting transportation to medical appointments?: No Do you have trouble paying your heating and electricity bill?: No Do you have trouble taking care of your child, family member or friend?: No Do you have trouble with day-to-day activities such as bathing, preparing meals, shopping, managing finances, etc.?: No Are you currently unemployed and looking for a job?: No Are you interested in more education?: No Please select the resources that you would like help with: None Currently or been in a relationship where the following occur: No concerns reported THRIVE Score: 0 AUDIT C Alcohol Use Questionnaire (AUDIT-C) 1. How often do you have a drink containing alcohol?: Monthly or less 2. How many drinks containing alcohol do you have on a typical day when you are drinking?: 1 or 2 3. How often do you have six or more drinks on one occasion?: Never Total Score: 1 MAXIMO-7 AMB Questionnaire MAXIMO-7 Date MAXIMO - 7 assessed: 11/11/23 Source: Developed by Drs. Robert Rodrigues, Carmina Jara, Silas Marion and colleagues, with an educational arun from [employer]. Review of Systems Const Denies difficulty sleeping, Denies increased appetite and Denies poor appetite Eyes Reports no additional complaints ENT Reports no additional complaints Card Reports no additional complaints Resp Reports no additional complaints GI Reports no additional complaints Reports no additional complaints Musc Reports no additional complaints Skin/Breast Reports system reviewed and no additional complaints, except as documented Psych Reports anxiety and Reports depression Physical exam (Primary Care) Vital Signs: Last Vital Signs Pulse 74 12/23/23 10:35 BP 110/72 12/23/23 10:35 Pulse Ox 98 12/23/23 10:35 Oxygen Delivery Method Room Air 12/23/23 10:35 BMI result Body Mass Index 31.9 Tobacco/Smoking Status: Tobacco use Status Tobacco use date assessed 08/14/23 12/23/23 10:36 Patient Tobacco Use Status Former Tobacco user 12/23/23 10:36 Tobacco use type Cigarette 12/23/23 10:36 e-Cigarette/Vaping Use Never Used 12/23/23 10:36 PHQ-9: PHQ-9 Score PHQ-9: Total score 0 12/23/23 10:43 Depression Screening Interpretation: Positive Thrive Assessment: Date of Thrive Assessment Date Thrive assessed 06/23/23 12/23/23 10:36 Currently or been in a relationship where the following occur: No concerns reported Const General: cooperative, healthy appearing, comfortable and no acute distress Orientation/consciousness: patient oriented x3 HENMT Head: Yes normocephalic Ears: hearing grossly normal bilaterally General nose exam: Normal external nose present Eyes General: appearance normal, both eyes and all related structures Conjunctivae: conjunctivae normal Neck Neck: Yes full ROM and Yes no lymphadenopathy Resp Effort & Inspection: normal respiratory effort Auscultation: clear to auscultation bilaterally, no crackles, no rales, no rhonchi and no wheezes Cardio Rate: regular rate Rhythm: regular rhythm Skin General skin exam: no rashes or lesions noted Neuro General: patient oriented x3 Gait exam (Neuro): Normal gait present Extrem General: Yes normal to inspection, Yes full ROM and No edema Psych Affect: normal affect Attitude: cooperative Insight: Good insight present (Psych) Judgement: Good judgement present (Psych) Assessment and Plan Assessment & Plan (1) Panic attacks: Code(s): F41.0 - Panic disorder [episodic paroxysmal anxiety] Plan: Patient is being managed by [facility]. Continue on current med regimen. (2) Generalized anxiety disorder: Comment: decline referral for counselling 11/2023 [facility] Q 3 weeks Code(s): F41.1 - Generalized anxiety disorder Plan: Patient followed by [facility] Psychiatry. Continue on Lexapro, Risperdal, and hydroxyzine. (3) Recurrent major depression: Code(s): F33.9 - Major depressive disorder, recurrent, unspecified Plan: Patient followed by [facility] Psychiatry. Continue on Lexapro, Risperdal, and hydroxyzine. Medical leave paperwork filled out today for period of time where patient was being seen frequently by Psychiatry and admitted inpatient for mental health concerns. Denies any thoughts of self-harm and we will reach out if this should change. Plan This note was constructed using voice recognition software. While every effort has been made to ensure accuracy and nuclear design engineer, still areas may have been included sometimes these areas may affect the content or meeting of the given symptoms. Total time spent caring for the patient today was 30 minutes. This includes time spent before the visit reviewing the chart, time spent during the visit, and time spent after the visit and documentation. Coding Level of Care Code Est Pt Level 3 (60386) Diagnoses Panic attacks F41.0 Generalized anxiety disorder F41.1 Recurrent major depression F33.9
== END 2023-12-23 11:06 | disposition home or self-care (01) ==
PROVIDERS: PCP Internal Medicine
DX: F41.0 Panic disorder [episodic paroxysmal anxiety] (principal); F41.1 Generalized anxiety disorder; F33.9 Major depressive disorder, recurrent, unspecified
CPT/HCPCS: 99213

== ENCOUNTER 2024-02-11 20:57 | Emergency (ER) | payer OTHER, SELFPAY ==
[2024-02-11 21:14] VITALS: BP 117/85; PULSE 87; RESP 18; TEMP 36.1; O2SAT 97; BMI 31.4
[2024-02-11] MEDS: Tobramycin Sulfate 0.3% Sol Op 5 ML BTL 2 DROP EYE-RIGHT (23:14)
[2024-02-11 23:18] VITALS: BP 117/85; PULSE 87; RESP 18; TEMP 36.1; O2SAT 97
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
== END 2024-02-11 23:19 | disposition home or self-care (01) ==
PROVIDERS: Emergency Provider Internal Medicine; PCP Internal Medicine
DX: S05.01XA Injury of conjunctiva and corneal abrasion without foreign body, right eye, initial encounter (principal); W22.8XXA Striking against or struck by other objects, initial encounter; H53.8 Other visual disturbances; E78.00 Pure hypercholesterolemia, unspecified; Z87.891 Personal history of nicotine dependence; Y93.89 Activity, other specified; Y92.89 Other specified places as the place of occurrence of the external cause; Y99.0 Civilian activity done for income or pay
CPT/HCPCS: 99282; 99283

== ENCOUNTER → 2024-02-12 09:38 | Outpatient (BNVA) | payer OTHER, SELFPAY | PROVIDERS: PCP Internal Medicine; Visit Provider Physician Assistant Medical | DX: S05.01XA Injury of conjunctiva and corneal abrasion without foreign body, right eye, initial encounter (principal); W22.8XXA Striking against or struck by other objects, initial encounter | CPT/HCPCS: 99202 ==

== ENCOUNTER → 2024-02-18 13:52 | Outpatient (BNVA) | payer OTHER, SELFPAY | PROVIDERS: PCP Internal Medicine; Visit Provider Physician Assistant Medical | DX: S05.01XA Injury of conjunctiva and corneal abrasion without foreign body, right eye, initial encounter (principal); W22.8XXA Striking against or struck by other objects, initial encounter | CPT/HCPCS: 99215 ==

== ENCOUNTER 2024-07-23 08:31 | Outpatient (AMB) | payer BC, SELFPAY ==
--- NOTE | 2024-07-23 08:55 | MHC.PC.OV ---
Vital Signs 07/23/24 09:02 Height 5 ft 11 in Weight 235 lb 8 oz BMI 32.8 BP 132/68 Blood Pressure Location Lt brachial Position Sitting Pulse 58 Pulse Source Pulse Oximeter Temp 97.1 F Temp Source Temporal Artery Scan Pulse Oximetry (%) 98 Oxygen Delivery Method Room Air Intake Visit Reasons: nausea/ hand discoloration Intake Note: Patient is here to follow up on Nausea and hand discoloration. 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 per policy Accompanied by: Self / Same As Patient Allergies No Known Allergies Allergy (Verified 07/23/24 09:19) Medication List - Last Reconciled 07/23/24 by Yocasta Lopez PA-C escitalopram oxalate (Lexapro) 10 mg PO DAILY hydroxyzine HCl 50 mg PO BID PRN ibuprofen 800 mg PO TID PRN Tobacco use date assessed: 07/23/24 Dental Screening Dental Screen Date: 07/23/24 Did you have a dental visit in the last 12 months?: Yes Did you have a dental problem in the last 6 months where you did not have access to dental care?: No Was dental information given to patient?: Patient has dentist HPI nausea/ hand discoloration HPI Details 38-year-old male with past medical history of hypercholesterolemia, ADHD, generalized anxiety disorder last seen 12/2023 coming in for acute problem. Presenting with fatigue and skin discoloration. He has experienced fatigue for an unspecified duration, possibly linked to recent weight gain. The patient observed yellowish discoloration on his hands while in sunlight, which is now fading. Calluses are noted, potentially related to prior exercise activities. Reports living with depression, treated with escitalopram; however, medication is taken irregularly. Recent weight gain of approximately 5-10 pounds, contributing to liver concerns and overall health. [facility] Medical History Overweight (BMI 25.0-29.9) Recurrent major depression Vitamin D deficiency Lump of left breast Retinal detachment Obesity (BMI 30-39.9) Hypercholesterolemia Surgical History History of cataract surgery H/O vitrectomy History of appendectomy H/O hernia repair History of ankle surgery History of lumbar fusion History of tonsillectomy Family History Father Alive and well Mother Lung cancer Diabetes Hypertension Sister Colon cancer, Onset Age: 48 Social History Housing: House Alcohol intake: current Alcohol intake frequency: holidays/special occasions only Patient Tobacco Use Status: Former Tobacco user Tobacco use type: Cigarette e-Cigarette/Vaping Use: Never Used Second Hand Smoke Exposure: Yes service: No Current occupational status: employed Current occupation: [employer] Cognitive needs: No Hearing needs: No Vision needs: Yes (reading glasses) Questionnaire PHQ-9 Over the last 2 weeks, how often have you been bothered by any of the following problems? 1. Little interest or pleasure in doing things: not at all 2. Feeling down, depressed, or hopeless: not at all 3. Trouble falling or staying asleep, or sleeping too much: not at all 4. Feeling tired or having little energy: not at all 5. Poor appetite or overeating: not at all 6. Feeling bad about yourself - or that you are a failure or have let yourself or your family down: not at all 7. Trouble concentrating on things, such as reading the newspaper or watching television: not at all 8. Moving or speaking so slowly that other people could have noticed. Or the opposite - being so fidgety or restless that you have been moving around a lot more than usual: not at all 9. Thoughts that you would be better off or of hurting yourself in some way: not at all Total score: 0 Depression Screening Interpretation: Negative Depression Screening Done: Yes Source: Developed by Drs. Robert Rodrigues, Carmina Jara, Silas Marion and colleagues, with an educational arun from [employer]. Thrive Questionnaire Date Thrive assessed: 07/23/24 I am a: Patient What is your living situation today?: I have a steady place to live Within the past 12 months, did the food you bought not last and you didn't have the money to get more?: Never true Within the past 12 months, did you worry whether your food would run out before you got money to buy more?: Never true Do you have trouble paying for medicines?: No Do you have trouble getting transportation to medical appointments?: No Do you have trouble paying your heating and electricity bill?: No Do you have trouble taking care of your child, family member or friend?: No Do you have trouble with day-to-day activities such as bathing, preparing meals, shopping, managing finances, etc.?: No Are you currently unemployed and looking for a job?: No Are you interested in more education?: No Please select the resources that you would like help with: None Currently or been in a relationship where the following occur: No concerns reported THRIVE Score: 0 AUDIT C Alcohol Use Questionnaire (AUDIT-C) 1. How often do you have a drink containing alcohol?: Monthly or less 2. How many drinks containing alcohol do you have on a typical day when you are drinking?: 1 or 2 Total Score: 1 MAXIMO-7 AMB Questionnaire MAXIMO-7 Date MAXIMO - 7 assessed: 07/23/24 Feeling nervous, anxious, or on edge: 0 = Not at all Not being able to stop or control worryin = Not at all Worrying too much about different things: 0 = Not at all Trouble relaxin = Not at all Being so restless that it is hard to sit still: 0 = Not at all Becoming easily annoyed or irritable: 0 = Not at all Feeling afraid as if something awful might happen: 0 = Not at all Total MAXIMO-7 score (0-4 normal; 5-9 mild; 10-14 moderate; 15-21 severe): 0 Source: Developed by Drs. Robert Rodrigues, Carmina Jara, Silas Marion and colleagues, with an educational arun from [employer]. Review of Systems Const Denies body aches, Denies chills, Denies fever(s), Denies headache(s) and Denies poor appetite Eyes Reports no additional complaints ENT Denies headache(s) Card Denies chest pain and Denies dyspnea Resp Denies dyspnea Musc Reports no additional complaints and Denies abnormal gait Skin/Breast Reports system reviewed and no additional complaints, except as documented Neuro Denies abnormal gait and Denies headache(s) Psych Reports no additional complaints Physical exam (Primary Care) Vital Signs: Last Vital Signs Temp 97.1 F 07/23/24 09:02 Pulse 58 03/21/25 09:02 BP 132/68 07/23/24 09:02 Pulse Ox 98 07/23/24 09:02 Oxygen Delivery Method Room Air 07/23/24 09:02 BMI result Body Mass Index 32.8 Tobacco/Smoking Status: Tobacco use Status Tobacco use date assessed 07/23/24 07/23/24 09:06 Patient Tobacco Use Status Former Tobacco user 07/23/24 08:56 Tobacco use type Cigarette 07/23/24 08:56 e-Cigarette/Vaping Use Never Used 07/23/24 08:56 PHQ-9: PHQ-9 Score PHQ-9: Total score 0 07/23/24 09:06 Depression Screening Interpretation: Negative Thrive Assessment: Date of Thrive Assessment Date Thrive assessed 07/23/24 07/23/24 09:06 Currently or been in a relationship where the following occur: No concerns reported Const General: cooperative, healthy appearing, comfortable and no acute distress Orientation/consciousness: patient oriented x3 HENMT Head: Yes normocephalic Ears: hearing grossly normal bilaterally General nose exam: Normal external nose present Eyes General: appearance normal, both eyes and all related structures Conjunctivae: conjunctivae normal Neck Neck: Yes full ROM and Yes no lymphadenopathy Resp Effort & Inspection: normal respiratory effort Auscultation: clear to auscultation bilaterally, no crackles, no rales, no rhonchi and no wheezes Cardio Rate: regular rate Rhythm: regular rhythm Skin General skin exam: no rashes or lesions noted Neuro General: patient oriented x3 Gait exam (Neuro): Normal gait present Extrem General: Yes normal to inspection, Yes full ROM and No edema Psych Affect: normal affect Attitude: cooperative Insight: Good insight present (Psych) Judgement: Good judgement present (Psych) Coding Level of Care Code Est Pt Level 3 (84871) Diagnoses Hypercholesterolemia E78.00 Obesity (BMI 30-39.9) E66.9 Generalized anxiety disorder F41.1 Recurrent major depression F33.9 Fatigue R53.83 Screening for STD (sexually transmitted disease) Z11.3 Hypopigmentation L81.9 Assessment & Plan Assessment & Plan (1) Hypercholesterolemia: Code(s): E78.00 - Pure hypercholesterolemia, unspecified Category: Medical Plan: Avoid foods that are high in cholesterol such as red meat, fried foods, eggs and baked goods. Triglyceride goal of less than 150 and LDL goal of less than 130. Ordered for repeat blood work (2) Obesity (BMI 30-39.9): Code(s): E66.9 - Obesity, unspecified Category: Medical Plan: Healthy diet and regular exercise is encouraged. (3) Generalized anxiety disorder: Comment: decline referral for counselling 11/2023 [place] Q 3 weeks Code(s): F41.1 - Generalized anxiety disorder Category: Medical Plan: Feels good on the escitalopram. (4) Recurrent major depression: Code(s): F33.9 - Major depressive disorder, recurrent, unspecified Category: Medical Plan: Feels good in the escitalopram at this time (5) Fatigue: Code(s): R53.83 - Other fatigue Category: Medical Plan: Patient complaining of fatigue believes to be related to his recent weight gain. Planned ordered for blood work advised healthy diet and regular exercise. (6) Screening for STD (sexually transmitted disease): Code(s): Z11.3 - Encounter for screening for infections with a predominantly sexual mode of transmission Category: Medical Plan: Ordered for blood work to screen for STD. Denies exposure but requesting this testing. (7) Hypopigmentation: Code(s): L81.9 - Disorder of pigmentation, unspecified Category: Medical Plan: Patient having hypopigmentation of right side of upper lip requesting dermatology referral placed to [facility] today. Plan This note was constructed using voice recognition software. While every effort has been made to ensure accuracy and on site manager, still areas may have been included sometimes these areas may affect the content or meeting of the given symptoms. Total time spent caring for the patient today was 20 minutes. This includes time spent before the visit reviewing the chart, time spent during the visit, and time spent after the visit and documentation. Orders: Orders Comprehensive Met. Panel Today R53.83 - Other fatigue, Z00.00 - Encounter for general adult medical examination without abnormal findings TSH reflex Free T4 Today R53.83 - Other fatigue, Z00.00 - Encounter for general adult medical examination without abnormal findings Free T4 (Free Thyroxine) Today R53.83 - Other fatigue, Z00.00 - Encounter for general adult medical examination without abnormal findings Vitamin D 25-OH Total Today R53.83 - Other fatigue, Z00.00 - Encounter for general adult medical examination without abnormal findings Lipid Panel Today E78.00 - Pure hypercholesterolemia, unspecified Hepatitis B,C Profile Today Z11.3 - Encounter for screening for infections with a predominantly sexual mode of transmission Complete Blood Count Auto Diff Today R53.83 - Other fatigue, Z00.00 - Encounter for general adult medical examination without abnormal findings Vitamin B12 and Folate Today R53.83 - Other fatigue, Z00.00 - Encounter for general adult medical examination without abnormal findings Hemoglobin A1c Today Z13.1 - Encounter for screening for diabetes mellitus Testosterone, Total Today R53.83 - Other fatigue CT NG by PCR Today Z11.3 - Encounter for screening for infections with a predominantly sexual mode of transmission Referrals Dermatology Referral L81.9 - Disorder of pigmentation, unspecified Medications: Refilled ibuprofen 800 mg PO TID PRN 30 tabs 0RF pain
[2024-07-23 09:02] VITALS: BP 132/68; PULSE 58; TEMP 36.2; O2SAT 98; BMI 32.8
== END 2024-07-23 09:36 | disposition home or self-care (01) ==
LOC: HO.HMCH 08:32
PROVIDERS: PCP Internal Medicine
DX: E78.00 Pure hypercholesterolemia, unspecified (principal); E66.9 Obesity, unspecified; F41.1 Generalized anxiety disorder; F33.9 Major depressive disorder, recurrent, unspecified; R53.83 Other fatigue; Z11.3 Encounter for screening for infections with a predominantly sexual mode of transmission; L81.9 Disorder of pigmentation, unspecified

== ENCOUNTER 2024-07-23 08:31 | Outpatient (REF) | payer BC, OTHER, SELFPAY ==
[2024-07-23 10:55] LABS: MANUAL DIFF FLAG NO
[2024-07-23 11:33] LABS: Basophils Percent Auto 0.7 % (0-2); Eosinophils Absolute Auto 0.1 X10*3/uL (0.0-0.4); Eosinophils Percent Auto 1.9 % (0-4); Hematocrit 45.5 % (42.0-52.0); Hemoglobin 15.6 g/dl (14.0-18.0); Imm Gran Abs Auto 0.03 X10*3/uL (0.00-0.03); Imm Gran Pct Auto 0.5 % (0.0-0.4); Lymphocytes Absolute Auto 1.8 X10*3/uL (1.2-4.9); Mean Corpuscular HGB Conc 34.3 g/dl (31.0-36.0); Mean Corpuscular Hemoglobin 29.6 pg (27.0-33.0); Mean Corpuscular Volume 86.3 fL (80.0-98.0); Mean Platelet Volume 10.6 fL (9.4-12.4); Monocytes Absolute Auto 0.7 X10*3/uL (0.1-1.2); Neutrophils Absolute Auto 3.2 x10*3/uL (2.0-8.3); Neutrophils Percent Auto 53.9 % (45-73); Platelet Count 250 X10*3/uL (160-400); Red Blood Count 5.27 X10*6/uL (4.60-5.80); Red Cell Distribution Width 13.2 % (11.0-16.0); White Blood Count 5.8 X10*3/uL (4.8-10.8)
[2024-07-23 11:39] LABS: Estimated Average Glucose 105 mg/dL; Hemoglobin A1c % 5.3 % (<6.0)
[2024-07-23 12:14] LABS: Alanine Aminotransferase 80 U/L (0-40); Albumin Level 4.5 g/dL (3.5-5.0); Alkaline Phosphatase 79 U/L (39-117); Anion Gap 9 (12-20); Aspartate Amino Transferase 41 U/L (5-37); Bilirubin Total 0.6 mg/dL (0.0-1.0); Blood Urea Nitrogen 12 mg/dL (9-16); Calcium 9.6 mg/dL (8.4-10.2); Carbon Dioxide 28 mmol/L (22-29); Chloride 107 mmol/L (96-108); Cholesterol 280 mg/dL (<200); Estimated Glomerular Filt Rate > 60; Glucose Random 97 mg/dL (60-115); HDL Cholesterol 46 mg/dL (>40); LDL Cholesterol Calculated 197 mg/dL (<100); Potassium 4.1 mmol/L (3.3-5.1); Sodium 140 mmol/L (135-145); Total Protein 8.1 g/dL (6.5-8.0); Triglycerides 186 mg/dL (<150)
[2024-07-23 12:43] LABS: Vitamin B12 401 pg/mL (200-900)
[2024-07-23 12:47] LABS: Free T4 (Free Thyroxine) 0.88 ng/dL (0.71-1.85); TSH reflex Free T4 1.54 uIU/mL (0.32-4.0); Vitamin D 25-OH Total 8.3 ng/mL (>30)
[2024-07-23 12:50] LABS: HBc Num1 0.04 S/CO (0.00-0.79); HBsAGNum1 0.29 S/CO (0.00-0.99); Hepatitis B Core Antibody Nonreactive (Nonreactive); Hepatitis B Surface Antigen Negative (Negative); ~HepC Num1 0.13 S/CO (0.00-0.79); ~Hepatitis B Surface Antibody REACTIVE (Nonreactive); ~Hepatitis C Antibody Nonreactive (Nonreactive)
[2024-07-29 11:53] LABS: Testosterone, Total 558 ng/dL (250-1100)
== END 2024-07-23 08:32 | disposition home or self-care (01) ==
LOC: HO.LAB 08:31
PROVIDERS: PCP Internal Medicine
DX: Z00.00 Encounter for general adult medical examination without abnormal findings (principal); R53.83 Other fatigue; E78.00 Pure hypercholesterolemia, unspecified; Z11.3 Encounter for screening for infections with a predominantly sexual mode of transmission; Z13.1 Encounter for screening for diabetes mellitus
CPT/HCPCS: 36415; 80053; 80061; 82306; 82607; 82746; 83036; 84403; 84439; 84443; 85025; 86704; 86706; 86803; 87340